=== PATIENT | male | born 1940 | race Asian ===

== ENCOUNTER 2021-09-25 14:47 | Inpatient (IN) | payer OTHER ==
[~2021-09-25] VITALS: Ht 157.5 cm; Wt 61.2 kg
[2021-09-25 14:50] VITALS: BP 98/43
--- NOTE | 2021-09-25 14:57 | NUR ---
PT W/C ASSISTED TO BED 3.
[2021-09-25] MEDS ORDERED: NACL 0.9% 1,000 ML IV SCH (15:00)
[2021-09-25] MEDS ORDERED: cefTRIAXone 1,000 MG in DEXT 5% MINI-BAG PLUS 50 ML IV ONE (15:00)
--- NOTE | 2021-09-25 15:10 | NUR ---
RADIOLOGY AT BEDSIDE
--- NOTE | 2021-09-25 15:11 | NUR ---
PAINT LABORATORY TECHNICIAN AT BEDSIDE.
[2021-09-25 15:34] LABS: BASOPHILS % (AUTO) 0.6 % (0.0-2.0); EOSINOPHILS # (AUTO) 0.3 K/uL (0-0.4); EOSINOPHILS % (AUTO) 5.8 % (0.0-4.0); HEMATOCRIT 26.9 % (36-52); LYMPHOCYTES # (AUTO) 1.1 K/uL (2.0-11.5); LYMPHOCYTES % (AUTO) 22.5 % (20.5-51.1); MEAN CORPUSCULAR HEMOGLOBIN 32 pg (27-31); MEAN CORPUSCULAR HGB CONC 33 g/dL (33-37); MONOCYTES # (AUTO) 0.4 K/uL (0.8-1.0); MONOCYTES % (AUTO) 9.2 % (1.7-9.3); NEUTROPHILS # (AUTO) 2.9 K/uL (1.8-7.7); NEUTROPHILS % (AUTO) 61.9 % (42.2-75.2); PLATELET COUNT (AUTO) 161 K/uL (140-450); RED BLOOD CELL COUNT(AUTO) 2.77 MIL/uL (4.20-6.10); RED CELL DISTRIBUTION WIDTH 12.8 % (11.6-13.7); WHITE BLOOD COUNT (AUTO) 4.7 K/uL (4.8-10.8)
[2021-09-25 15:50] LABS: ALBUMIN 2.8 g/dL (3.4-5.0); ANION GAP 14.5 (8-16); ASPARTATE AMINOTRANSFERASE 20 U/L (15-37); CARBON DIOXIDE 24.9 mmol/L (21-32); CHLORIDE 102 mmol/L (98-107); CREATININE 2.3 mg/dL (0.6-1.3); GLUCOSE 226 mg/dL (74-106); POTASSIUM 4.4 mmol/L (3.5-5.1); SODIUM SERUM 137 mmol/L (136-145); TOTAL BILIRUBIN 0.3 mg/dL (0.0-1.0); UREA NITROGEN, BLOOD 55 mg/dL (7-18)
[2021-09-25] MEDS ORDERED: NACL 0.9% 1,000 ML IV ONE ×2 (16:20→17:50)
--- NOTE | 2021-09-25 16:24 | NUR ---
WALKED URINE SPECIMEN TO LAB, HANDED TO CPT JONATHAN
[2021-09-25 16:37] LABS: APPEARANCE,URINE CLEAR (CLEAR); BILIRUBIN,URINE NEGATIVE (NEGATIVE); BLOOD, URINE NEGATIVE (NEGATIVE); COLOR,URINE YELLOW (YELLOW); LEUKOCYTE ESTERASE ,URINE NEGATIVE (NEGATIVE); NITRITE, URINE NEGATIVE (NEGATIVE); UGLUCOSE 3+ (NEGATIVE)
[2021-09-25] MEDS ORDERED: cefTRIAXone 1,000 MG VIAL ONE (16:52)
--- NOTE | 2021-09-25 17:54 | NUR ---
81 Y/O MALE BIB FAMILY C/O GENERALIZED WEAKNESS X 3 DAYS. PT BLOOD SUGAR 215 AT THIS TIME. DENIES FEVER/CHILLS. DENIES N/V/D. PMH: DM, HTN, PACE MAKER ELYSIA
--- NOTE | 2021-09-25 18:34 | NUR ---
Patient will be admitted to care of DR. WELDON. Admited to TELEMETRY. Will go to room 112A. Belongings list completed. Report to LIAT COSTELLO.
[2021-09-25 18:36] VITALS: BP 185/66
--- NOTE | 2021-09-25 18:36 | NUR ---
ADMITTED PT FROM ED VIA GURNEY, BEDSIDE REPORT GIVEN BY KEO GARCIA. PT IS ALERT, AWAKE ABLE TO MAKE NEEDS KNOWN, SPEAKS AND UNDERSTANDS EQUATORIAL GUINEAN BUT PRIMARILY SPEAKS CZECH. ABLE TO AMBULATE WITH STEADY GAIT, BREATHING SYMMETRICAL ON ROOM AIR. DENIES PAIN AT THIS TIME. WITH LAC 20G WITH NS AT 60CC/HR. MRSA SWAB DONE. [id number] PR60 RR17 TEMP97.0 O2 SAT ON ROOM AIR 98% AT BEDSIDE, AND PT STATED THAT HIS BP IS ALWAYS HIGH, AROUND THAT RANGE OR EVEN HIGHER. LEFT MESSAGE TO DR WELDON REGARDING ELEVATED BP, AWAITING RESPONSE. SERVED WITH DINNER AND ABLE TO FEED SELF. CALL LIGHT WITHIN REACH. BED ON LOW POSITION, BRAKES ON. ALL SAFETY MEASURES IN PLACE.
--- NOTE | 2021-09-25 18:53 | NUR ---
The patient's care was reviewed and supervised by Anamaria Acosta RN.
[2021-09-25] MEDS ORDERED: ONDANSETRON 4 MG/2 ML VIAL IM/IVP PRN (19:00)
[2021-09-25] MEDS ORDERED: POTASSIUM CHLORIDE 10 MEQ TABER PO PRN (19:00)
[2021-09-25] MEDS ORDERED: DOCUSATE SODIUM 100 MG GELCAP PO PRN (19:00)
[2021-09-25] MEDS ORDERED: ZOLPIDEM 5 MG TAB PO PRN (19:00)
[2021-09-25] MEDS ORDERED: HYDROcodone/APAP 7.5/325 MG 1 TAB PO PRN (19:00)
[2021-09-25] MEDS ORDERED: guaiFENesin DM 200/20 MG-10 ML 10 ML UDC PO PRN (19:00)
[2021-09-25] MEDS ORDERED: ACETAMINOPHEN 325 MG TAB PO PRN (19:00)
--- NOTE | 2021-09-25 19:05 | NUR ---
ENDORSED PT TO RAMP JOCKEY NURSE, ALSO MADE AWARE OF PT'S ELEVATED BP AND AWAITING RESPONSE FROM DR WELDON. PT IN STABLE CONDITION AT THIS TIME
--- NOTE | 2021-09-25 19:08 | NUR ---
RECEIVED REPORT FROM ASHLEY DOWLING RN FOR CONTINUITY OF CARE. PT IS AWAKE ON RM AIR WITH NO S/S OF DISTRESS AT THIS TIME. PT IS AMBULATORY. IV SITE LAC 20G. SKIN IS INTACT. PLAN OF CARE DISCUSSED. WILL CONTINUE TO MONITOR.
--- NOTE | 2021-09-25 19:15 | NUR ---
RECEIVED CRITICAL LAB VALUE: LACTIC ACID 3.4. TEXTED DR WELDON. RECEIVED ORDERS. INFORMED HIM ROCEPHIN 1GM ALREADY GIVEN IN ER @ 17:15. NEW ORDER FOR LOPRESSOR 25MG RECEIVED. FIRST DOSE GIVEN WITH HS MEDS FOR HIGH SYSTOLIC BP 180'S. WILL CONTINUE TO OBSERVE.
[2021-09-25 19:45] LABS: PROTHROMBIN TIME 10.1 secs (10.8-13.4)
[2021-09-25 19:48] LABS: CHOL/HDL RATIO 3.3 (1-4.5); FREE T4 (FREE THYROXINE) 1.02 ng/dL (0.76-1.46); MAGNESIUM 1.9 mg/dL (1.8-2.4); PHOSPHORUS 4.4 mg/dL (2.5-4.9); THYROID STIMULATING HORMONE 2.06 uIU/mL (0.34-3.74)
[2021-09-25] MEDS: NACL 0.9% 1,000 ML IV SCH (20:35)
[2021-09-25] MEDS: METOPROLOL 25 MG TAB PO SCH (20:49)
--- NOTE | 2021-09-25 23:30 | NUR ---
RESTING COMFORTABLY. VSS: BP-136/70, P-60, RR-18, T-98.2, O2SAT 97% ON ROOM AIR. LOPRESSOR EFFECTIVE. NAD. WILL CONTINUE TO MONITOR.
--- NOTE | 2021-09-26 02:00 | NUR ---
FREQ ROUNDS. PT SLEEPING RR EVEN AND UNLABORED WITH EQUAL CHEST RISE. NAD. WILL CONTINUE TO OBSERVE.
[2021-09-26] MEDS: hydrALAZINE 20 MG/ML VIAL IVP PRN ×3 (04:26→22:12)
--- NOTE | 2021-09-26 04:30 | NUR ---
VS: BP-197/69. RECEIVED APRESOLINE 10MG IVP/0.5ML IVP. WILL REASSESS AT 0530.
--- NOTE | 2021-09-26 05:30 | NUR ---
BP-NOW 159/64 HR-60. APRESOLINE EFFECTIVE. RESTING/DOZING RR EVEN AND UNLABORED WITH EQUAL CHEST RISE. DENIES PAIN. WILL CONTINUE TO MONITOR.
[2021-09-26 07:13] LABS: BASOPHILS % (AUTO) 0.8 % (0.0-2.0); EOSINOPHILS # (AUTO) 0.4 K/uL (0-0.4); EOSINOPHILS % (AUTO) 8.3 % (0.0-4.0); HEMATOCRIT 29.4 % (36-52); HEMOGLOBIN 9.9 g/dL (12.0-18.0); LYMPHOCYTES % (AUTO) 23.1 % (20.5-51.1); MEAN CORPUSCULAR HEMOGLOBIN 32 pg (27-31); MEAN CORPUSCULAR HGB CONC 34 g/dL (33-37); MEAN CORPUSCULAR VOLUME 95.9 fL (80-94); MONOCYTES # (AUTO) 0.4 K/uL (0.8-1.0); MONOCYTES % (AUTO) 8.2 % (1.7-9.3); NEUTROPHILS # (AUTO) 2.7 K/uL (1.8-7.7); NEUTROPHILS % (AUTO) 59.6 % (42.2-75.2); PLATELET COUNT (AUTO) 186 K/uL (140-450); RED BLOOD CELL COUNT(AUTO) 3.06 MIL/uL (4.20-6.10); RED CELL DISTRIBUTION WIDTH 12.7 % (11.6-13.7); WHITE BLOOD COUNT (AUTO) 4.5 K/uL (4.8-10.8)
--- NOTE | 2021-09-26 07:20 | NUR ---
ENDORSED REPORT TO AM LIAT RIVERS FOR CONTINUITY OF CARE. PT IS STABLE.
[2021-09-26 07:22] LABS: ANION GAP 12.3 (8-16); CARBON DIOXIDE 25.7 mmol/L (21-32); CHLORIDE 106 mmol/L (98-107); CREATININE 1.8 mg/dL (0.6-1.3); GLUCOSE 188 mg/dL (74-106); SODIUM SERUM 140 mmol/L (136-145); UREA NITROGEN, BLOOD 42 mg/dL (7-18)
--- NOTE | 2021-09-26 07:28 | NUR ---
RECEIVED PT FROM NIGHT RN, PT IS AMBULATING FROM THE BATHROOM, STEADY GAIT, AOX4, ON RA, IV LINE NOTED ON THE LAC G. 20 WITH IVF NS INFUSING AT 60ML/HR, INTACT, NO SIGN OF DISTRESS NOTED AND WILL CONTINUE TO MONITOR PT.
[2021-09-26 08:00] VITALS: BP 170/64
[2021-09-26] MEDS: PANTOPRAZOLE 40 MG TABEC PO SCH (09:27)
[2021-09-26] MEDS: METOPROLOL 25 MG TAB PO SCH ×2 (09:27→20:13)
--- NOTE | 2021-09-26 10:15 | NUR ---
PT REFUSED TO EAT BREAKFAST AND VERBALIZED THAT HE WILL WAIT FOR HIS TO BRING HIM FOOD.
[2021-09-26 10:52] LABS: APPEARANCE,URINE CLEAR (CLEAR); BILIRUBIN,URINE NEGATIVE (NEGATIVE); BLOOD, URINE NEGATIVE (NEGATIVE); COLOR,URINE YELLOW (YELLOW); LEUKOCYTE ESTERASE ,URINE NEGATIVE (NEGATIVE); NITRITE, URINE NEGATIVE (NEGATIVE); PH,URINE 6.5 (5.0-9.0); UGLUCOSE 3+ (NEGATIVE)
[2021-09-26 11:35] LABS: CALCIUM OXALATE CRYSTALS,UR None Seen /HPF (None Seen); COARSE GRANULAR CASTS,URINE None Seen /LPF (None Seen); FINE GRANULAR CASTS,URINE None Seen /LPF (None Seen); HYALINE CASTS, URINE None Seen /LPF (None Seen); OTHER CASTS, URINE None Seen /LPF (None Seen); OTHER CRYSTALS,URINE None Seen /HPF (None Seen); RBC,URINE NONE SEEN /HPF (0-5); RED BLOOD CELL CASTS,URINE None Seen /LPF (None Seen); TRICHOMONAS,URINE None Seen /HPF (None Seen); TRIPLE PHOSPHATE CRYSTAL,UR None Seen /HPF (None Seen); URIC ACID CRYSTALS,URINE None Seen /HPF (None Seen); URINE AMORPHOUS URATE None Seen /HPF (None Seen); WAXY CASTS,URINE None Seen /LPF (None Seen); YEAST,URINE None Seen /HPF (None Seen)
[2021-09-26 11:37] LABS: WBC,URINE 0-5 /HPF (0-5)
[2021-09-26 12:00] VITALS: BP 181/55
[2021-09-26] MEDS: NACL 0.9% 1,000 ML IV SCH (13:41)
--- NOTE | 2021-09-26 13:50 | NUR ---
pt was given bp medication via iv push now, on the bedside.
--- NOTE | 2021-09-26 14:54 | NUR ---
DR. WELDON GAVE A TELEPHONE ORDER TO GIVEN PT HYDRALAZINE PO 10MG TABLET TID AND GIVE ONE DOSE NOW, PT'S BP IS STILL HIGH AFTER THE HYDRALAZINE 10MG IVP ONE HOUR AFTER THAT WAS GIVEN
[2021-09-26] MEDS ORDERED: hydrALAZINE 10 MG TAB PO SCH ×2 (14:57→17:00)
[2021-09-26 16:00] VITALS: BP 166/56
[2021-09-26 18:44] VITALS: BP 159/78
--- NOTE | 2021-09-26 19:15 | NUR ---
ENDORSED PT TO NIGHT RN FOR CONTINUITY OF CARE.
--- NOTE | 2021-09-26 19:16 | NUR ---
RECEIVED REPORT FROM AM NURSE FOR CONTINUITY OF CARE. PT IS RESTING. RR EVEN AND UNLABORED ON ROOM AIR. NO S/S OF DISTRESS. SKIN IS INTACT. PLAN OF CARE DISCUSSED. WILL CONTINUE TO MONITOR.
[2021-09-26 20:00] VITALS: BP 214/62
[2021-09-26] MEDS ORDERED: NIFEdipine 30 MG TABER PO SCH (20:00)
[2021-09-26] MEDS: hydrALAZINE 25 MG TAB PO SCH (20:12)
--- NOTE | 2021-09-26 20:30 | NUR ---
VS:BP-214/62,P-60 PACED RHYTHM, RR-18, T-98.3 ORAL, O2 SAT=94%. RECEIVED SCHEDULED BP MEDS. PT IS ASYMPTOMATIC. WILL CONTINUE TO MONITOR PT IS AMBULATORY AND INDEPENDENT. VOIDS PER URINAL.
--- NOTE | 2021-09-26 22:00 | NUR ---
REASSESSED BLOOD PRESSURE. MEDS HAD SLIGHT EFFECT BP IS NOW 202/63, P-60,RR-18,T-98.4, O2SAT= 98%. PT REMAINS ASYMPTOMATIC. AWAKE ,ALERTDENIES CHEST PAIN. WILL CONTINUE WITH FREQ ROUNDS.
--- NOTE | 2021-09-26 22:12 | NUR ---
PT RECEIVED APRESOLINE 1MG/0.5ML IVP PRN SBP>160. REASSESSED PT'S BLOOD PRESSURE AT 2300. ONLY SLIGHT EFFECT BP NOW 198/60. PT SLEEPING RR EVEN AND UNLABORED. NO C/O PAIN OR DISTRESS. WILL CONTINUE WITH FREQ ROUNDS.
[2021-09-26 22:27] LABS: TOTAL PROTEIN URINE 214.5 MG/DL
[2021-09-27] VITALS: BP 198/60
--- NOTE | 2021-09-27 02:30 | NUR ---
FREQ ROUNDS.CHECKED PT IS STABLE AND ASLEEP IN BED. RR EVEN AND UNLABORED WITH EQUAL CHEST RISE. ALL SAFETY MEASURES IN PLACE. CALL LIGHT WITHIN REACH. WILL CONTINUE TO MONITOR.
[2021-09-27 04:00] VITALS: BP 185/62
--- NOTE | 2021-09-27 04:30 | NUR ---
BZ=385/62 PT ASYMPTOMATIC. TOO EARLY FOR PRN APRESOLINE. VOIDING PER URINAL. PT AMBULATES. NAD ALL SAFETY MEASURES IN PLACE. CALL LIGHT WITHIN REACH. CONTINUE TO MONITOR.
[2021-09-27] MEDS: NACL 0.9% 1,000 ML IV SCH (05:55)
[2021-09-27 06:29] LABS: BASOPHILS % (AUTO) 0.9 % (0.0-2.0); EOSINOPHILS # (AUTO) 0.3 K/uL (0-0.4); EOSINOPHILS % (AUTO) 5.3 % (0.0-4.0); HEMOGLOBIN 10.9 g/dL (12.0-18.0); LYMPHOCYTES # (AUTO) 1.1 K/uL (2.0-11.5); LYMPHOCYTES % (AUTO) 22.9 % (20.5-51.1); MEAN CORPUSCULAR HEMOGLOBIN 32 pg (27-31); MEAN CORPUSCULAR HGB CONC 33 g/dL (33-37); MEAN CORPUSCULAR VOLUME 96.1 fL (80-94); MONOCYTES # (AUTO) 0.4 K/uL (0.8-1.0); MONOCYTES % (AUTO) 9.5 % (1.7-9.3); NEUTROPHILS # (AUTO) 2.9 K/uL (1.8-7.7); NEUTROPHILS % (AUTO) 61.4 % (42.2-75.2); PLATELET COUNT (AUTO) 207 K/uL (140-450); RED BLOOD CELL COUNT(AUTO) 3.43 MIL/uL (4.20-6.10); RED CELL DISTRIBUTION WIDTH 12.7 % (11.6-13.7); WHITE BLOOD COUNT (AUTO) 4.7 K/uL (4.8-10.8)
[2021-09-27 06:47] LABS: ANION GAP 14.2 (8-16); CARBON DIOXIDE 23.7 mmol/L (21-32); CHLORIDE 106 mmol/L (98-107); CREATININE 1.8 mg/dL (0.6-1.3); GLUCOSE 271 mg/dL (74-106); POTASSIUM 3.9 mmol/L (3.5-5.1); SODIUM SERUM 140 mmol/L (136-145); UREA NITROGEN, BLOOD 32 mg/dL (7-18)
--- NOTE | 2021-09-27 07:32 | NUR ---
ENDORSED REPORT TO DAY SHIFT RN DIONNA FOR CONTINUITY OF CARE. PT IS STABLE.
[2021-09-27 08:00] VITALS: BP 198/68
[2021-09-27 08:08] LABS: T4 (THYROXINE) 7.5 ug/dL (4.5-12.0)
--- NOTE | 2021-09-27 09:05 | NUR ---
PATIENT HAS BEEN SCREENED AND CATEGORIZED MODERATE NUTRITION RISK. PATIENT WILL BE SEEN WITHIN 3-5 DAYS OF ADMISSION. /10/[address]
[2021-09-27] MEDS: hydrALAZINE 25 MG TAB PO SCH ×3 (09:11→16:30)
[2021-09-27] MEDS: PANTOPRAZOLE 40 MG TABEC PO SCH (09:12)
[2021-09-27] MEDS: METOPROLOL 25 MG TAB PO SCH ×2 (09:12→21:39)
[2021-09-27 09:30] VITALS: BP 168/64
[2021-09-27] MEDS ORDERED: CLOPIDOGREL 75 MG TAB PO SCH (10:30)
[2021-09-27] MEDS ORDERED: ASPIRIN 81 MG TAB.CHEW PO SCH (10:30)
--- NOTE | 2021-09-27 11:31 | NUR ---
patient up and about and denies pain.2d echo done.
[2021-09-27] MEDS: ATORVASTATIN 20 MG TAB PO SCH (12:02)
--- NOTE | 2021-09-27 13:58 | NUR ---
DC PLANNING: THE PATIENT PRESENTED TO THE ED WITH C/O GENERALIZED WEAKNESS X 3 DAYS. H/O DM, HTN AND PACEMAKER. CXR SHOWS CARDIOMEGALY AND PULMONARY VASCULAR CONGESTION, BUN 55, CR 2.3, PATIENT WITHOUT H/O OF CKD. BNP 730, UA-. PATIENT GIVEN 2 L NS AND ROCEPHIN IV IN ED AND ADMITTED FOR W/U. ORDERS FOR CONSULTS WITH NEUROLOGY, CARDIOLOGY AND NEPHROLOGY. CM SPOKE WITH THE PATIENTS SON ABHIJIT BY PHONE AND CONFIRMED THE PATIENTS ADDRESS AND PHONE NUMBER. CONFIRMED HIS PCP AND THAT PATIENT SEES HIM REGULARLY. THE PATIENT RENÉ WITH HIS SPOUSE AND SON IN A SINGLE STORY HOUSE AND IS INDEPENDENT IN ALL ACTIVITIES. HAS DME OF CANE, WC, FWW AND GLUCOMETER AND TAKES PO'S FOR HIS DM. HE HAS BEEN USING A CANE THIS LAST WEEK WHEN AMBULATING BECAUSE OF HIS C/O WEAKNESS BUT IS USUALLY ABLE TO AMBULATE INDEPENDENTLY INSIDE THE HOUSE. HE HAS NO HAD HOME HEALTH BEFORE OR BEEN IN A SNF. THE PATIENT AND SPOUSE ARE MOVING TO [place] THIS WEEKEND, ADDRESS [id number] [place], [phone]. HE DOES NOT THINK THE PHONE NUMBERS WILL CHANGE AND IS ASKING FOR HOME HEALTH F/U WHEN PATIENTS DC'S. CM EXPLAINED THAT [place] MIGHT BE OUT OF THE PATIENTS INSURANCE COVERAGE AREA BUT CM WILL F/U. FAMILY IS ABLE TO PROVIDE TRANSPORT HOME WHEN PATIENT DC'S, CM WILL FOLLOW. Addendum: 09/27/21 at 1405 by Kelly Marie CM Amended: Links added. Addendum: 09/29/21 at 0854 by Kelly Marie CM DC PLANNING: CM SPOKE WITH THE PATIENT AND HIS DAUGHTER AT BEDSIDE, ENDORSED THAT PATIENT WILL POTENTIALLY DC TODAY. THE IMPORTANT MESSAGE FROM MEDICARE WAS PRESENTED TO THE PATIENT WHO SIGNED IT, COPY GIVEN TO HIM. LAUREN WILL FOLLOW
[2021-09-27 16:00] VITALS: BP_SYST 180; BP_SYST 181; BP_SYST 184; BP_DIAS 50; BP_DIAS 56; BP_DIAS 59
[2021-09-27] MEDS: ISOSORBIDE MONONITRATE 30 MG TABER PO SCH ×2 (16:29→21:37)
[2021-09-27 20:00] VITALS: BP 196/59
[2021-09-27] MEDS: NIFEdipine 90 MG TABER PO SCH (20:32)
[2021-09-27] MEDS: lisinopriL 10 MG TAB PO SCH (21:40)
[2021-09-28] VITALS: BP 145/48
[2021-09-28 04:00] VITALS: BP 145/48
[2021-09-28 06:44] LABS: ANION GAP 14.9 (8-16); CARBON DIOXIDE 21.9 mmol/L (21-32); CHLORIDE 104 mmol/L (98-107); CREATININE 1.9 mg/dL (0.6-1.3); POTASSIUM 3.8 mmol/L (3.5-5.1); SODIUM SERUM 137 mmol/L (136-145); UREA NITROGEN, BLOOD 29 mg/dL (7-18)
[2021-09-28 06:48] LABS: GLUCOSE 441 mg/dL (74-106)
[2021-09-28 06:53] LABS: EOSINOPHILS # (AUTO) 0.3 K/uL (0-0.4); EOSINOPHILS % (AUTO) 5.4 % (0.0-4.0); HEMATOCRIT 30.7 % (36-52); HEMOGLOBIN 10.4 g/dL (12.0-18.0); LYMPHOCYTES % (AUTO) 20.1 % (20.5-51.1); MEAN CORPUSCULAR HEMOGLOBIN 32 pg (27-31); MEAN CORPUSCULAR HGB CONC 34 g/dL (33-37); MEAN CORPUSCULAR VOLUME 95.3 fL (80-94); MONOCYTES # (AUTO) 0.5 K/uL (0.8-1.0); MONOCYTES % (AUTO) 11.1 % (1.7-9.3); NEUTROPHILS % (AUTO) 62.4 % (42.2-75.2); PLATELET COUNT (AUTO) 209 K/uL (140-450); RED BLOOD CELL COUNT(AUTO) 3.22 MIL/uL (4.20-6.10); RED CELL DISTRIBUTION WIDTH 12.8 % (11.6-13.7); WHITE BLOOD COUNT (AUTO) 4.9 K/uL (4.8-10.8)
--- NOTE | 2021-09-28 07:00 | NUR ---
GLUCOSE - 441 - INFORMED CLAU RN , CLAU RN RELAYED THE GLUCOSE [address] WELDON - NO RESPONSE YET . I TOLD TO CLAU RN SHE HAVE TO ENDORSE AM NURSE TO FF UP IF DR Cl WELDON HAVE FURTHER ORDERS ABOUT IT - LIAT OLGUIN VERBALIZES UNDERSTANDING
[2021-09-28 08:00] VITALS: BP 193/69
[2021-09-28] MEDS: ATORVASTATIN 20 MG TAB PO SCH (08:15)
[2021-09-28] MEDS: ISOSORBIDE MONONITRATE 30 MG TABER PO SCH ×2 (08:16→21:11)
[2021-09-28] MEDS: CLOPIDOGREL 75 MG TAB PO SCH (08:17)
[2021-09-28] MEDS: PANTOPRAZOLE 40 MG TABEC PO SCH (08:18)
[2021-09-28] MEDS: METOPROLOL 25 MG TAB PO SCH (08:18)
[2021-09-28] MEDS: hydrALAZINE 25 MG TAB PO SCH ×3 (08:20→17:11)
[2021-09-28] MEDS: ECOTRIN 81 MG TABEC PO SCH (08:20)
[2021-09-28] MEDS: lisinopriL 10 MG TAB PO SCH ×2 (08:21→21:11)
[2021-09-28] MEDS ORDERED: LABETALOL 100 MG/20 ML VIAL IV PRN (08:45)
[2021-09-28] MEDS ORDERED: ISOSORBIDE MONONITRATE 30 MG TABER PO SCH (09:00)
[2021-09-28] MEDS ORDERED: hydrALAZINE 25 MG TAB PO SCH (09:00)
[2021-09-28] MEDS ORDERED: DEXTROSE 50% 50 ML SYR IVP PRN (09:25)
[2021-09-28] MEDS ORDERED: CLINICAL MONITORING MC PRN (09:50)
--- NOTE | 2021-09-28 10:09 | NUR ---
AROUND 0800, PATIENT' BP WA 193/69, NURSE GAVE PATIENT'S ROUTINE MORNING BP MEDS AND DR. GOMES VISITED PATIENT AND PRESCRIBED COUPLE MORE BP MEDS. AROUND PCP ALSO PRESCRIBED A MEDICATION TO MODULATE BLOOD SUGAR A,D MONITOR BLOOD SUGAR THROUGH ACCUCHECK. AT 1015, PATIENT'S OE=233/64, PULSE=60. WILL CONTINUE TO MONITOR. Addendum: 09/28/21 at 1535 by Renita Vitale RN AT 1130 PATIENT'S ACCUCHECK READ 465; DR. WILLS INFORMED AND RECEIVE ORDER TO HAVE LANTUS/GLARGINE 10 UNITS DAILY AND LANTUS 10 UNITS STAT. AT 1200 PATIENT'S BP READ 193/70, PCP AWARE AND MARINO PRESCRIBED
[2021-09-28] MEDS: BLOOD GLUCOSE MONITORING 1 DEV DEV FS SCH ×3 (11:24→21:12)
[2021-09-28 12:00] VITALS: BP 193/70
[2021-09-28] MEDS: INSULIN LANTUS 100 UNITS/ML 10 ML VIAL SUBQ SCH (13:51)
--- NOTE | 2021-09-28 14:54 | NUR ---
SW ATTEMPTED TO REACH SONABHIJIT BY PHONE FOR THE PURPOSE OF GATHERING COLLATERAL INFORMATION TO NO AVAIL. SW WILL FOLLOW UP.
[2021-09-28 16:00] VITALS: BP 198/63
[2021-09-28] MEDS: INSULIN LISPRO SLIDING SCALE 100 UNITS/ML VIAL SUBQ PRN (17:11)
--- NOTE | 2021-09-28 19:33 | NUR ---
ENDORSE PT TO PM SHIFT NURSE W/ STABLE CONDITION, PIV R. FOREARM 22G PATENT W/ NS @60ML/HR INFUSING.
[2021-09-28 20:00] VITALS: BP 194/106
[2021-09-28] MEDS: NIFEdipine 90 MG TABER PO SCH (21:11)
[2021-09-28] MEDS: carvediloL 12.5 MG TAB PO SCH (21:12)
--- NOTE | 2021-09-28 21:12 | NUR ---
SCHEDULED MEDICATIONS FOR THE NIGHT ADMINISTERED. TOLERATED WELL.
--- NOTE | 2021-09-28 22:20 | NUR ---
DR. MANOLO IBANEZ CALLED, INQUIRED ABOUT PATIENT B/P. INFORMED LEFT ARM - 194/106, RIGHT ARM 163/46. ORDERED ANKLE BRACHIAL INDEX, BILATERAL AND CLONIDINE PATCH 0.1 MG. X1 AL WEEK.
[2021-09-29] VITALS: BP 152/50
--- NOTE | 2021-09-29 00:30 | NUR ---
SLEEPING COMFORTABLY IN BED, RESPIRATION EVEN AND UNLABORED.
--- NOTE | 2021-09-29 02:00 | NUR ---
RESTING IN BED, STILL SLEEPING COMFORTABLY.
[2021-09-29 04:00] VITALS: BP_SYST 101; BP_SYST 121; BP_SYST 135; BP_DIAS 44; BP_DIAS 48; BP_DIAS 56
--- NOTE | 2021-09-29 04:00 | NUR ---
AMBULATED TO BR TO VOID, GAIT STEADY. BACK TO BED AFTER VOIDING. ORTHOSTATIC BP TAKEN.
[2021-09-29] MEDS: INSULIN LISPRO SLIDING SCALE 100 UNITS/ML VIAL SUBQ PRN ×2 (06:19→12:57)
[2021-09-29] MEDS: BLOOD GLUCOSE MONITORING 1 DEV DEV FS SCH ×2 (06:19→12:12)
--- NOTE | 2021-09-29 06:45 | NUR ---
CONDITION REMAIN STABLE. WILL ENDORSE TO AM SHIFT NURSE FOR CONTINUITY OF CARE.
[2021-09-29 07:03] LABS: ANION GAP 12.7 (8-16); CHLORIDE 108 mmol/L (98-107); GLUCOSE 205 mg/dL (74-106); POTASSIUM 3.7 mmol/L (3.5-5.1); SODIUM SERUM 140 mmol/L (136-145); UREA NITROGEN, BLOOD 30 mg/dL (7-18)
[2021-09-29 07:13] LABS: BASOPHILS % (AUTO) 0.7 % (0.0-2.0); EOSINOPHILS # (AUTO) 0.5 K/uL (0-0.4); EOSINOPHILS % (AUTO) 8.5 % (0.0-4.0); HEMATOCRIT 30.4 % (36-52); HEMOGLOBIN 10.3 g/dL (12.0-18.0); LYMPHOCYTES # (AUTO) 1.6 K/uL (2.0-11.5); LYMPHOCYTES % (AUTO) 28.1 % (20.5-51.1); MEAN CORPUSCULAR HEMOGLOBIN 32 pg (27-31); MEAN CORPUSCULAR HGB CONC 34 g/dL (33-37); MEAN CORPUSCULAR VOLUME 95.6 fL (80-94); MONOCYTES # (AUTO) 0.5 K/uL (0.8-1.0); MONOCYTES % (AUTO) 9.6 % (1.7-9.3); NEUTROPHILS % (AUTO) 53.1 % (42.2-75.2); PLATELET COUNT (AUTO) 225 K/uL (140-450); RED BLOOD CELL COUNT(AUTO) 3.18 MIL/uL (4.20-6.10); RED CELL DISTRIBUTION WIDTH 12.6 % (11.6-13.7); WHITE BLOOD COUNT (AUTO) 5.6 K/uL (4.8-10.8)
[2021-09-29 08:00] VITALS: BP 166/56
--- NOTE | 2021-09-29 08:09 | NUR ---
SPOKE TO DR IBANEZ ON THE PHONE REGARDING ORDER FOR ANKLE BRACHIAL INDEX TEST, PER RADIOLOGY WE DON'T HAVE THE SPECIFIC TEST. DR IBANEZ STATED UNDERSTANDING STATED TO FORWARD HIM PRIMARY PHYSICIAN PHONE NUMBER (DR WILLS) AND TO HOLD LISINOPRIL. WILL CONTINUE WITH ORDERS.
[2021-09-29] MEDS: hydrALAZINE 25 MG TAB PO SCH (08:39)
[2021-09-29] MEDS: ATORVASTATIN 20 MG TAB PO SCH (08:40)
[2021-09-29] MEDS: ECOTRIN 81 MG TABEC PO SCH (08:41)
[2021-09-29] MEDS: PANTOPRAZOLE 40 MG TABEC PO SCH (08:41)
[2021-09-29] MEDS: CLOPIDOGREL 75 MG TAB PO SCH (08:47)
[2021-09-29] MEDS: ISOSORBIDE MONONITRATE 30 MG TABER PO SCH (08:47)
[2021-09-29] MEDS: carvediloL 12.5 MG TAB PO SCH (08:49)
[2021-09-29] MEDS ORDERED: cloNIDine-TTS1 0.1 MG/24 HR 1 EA PATCH TD SCH ×2 (09:00)
[2021-09-29] MEDS: INSULIN LANTUS 100 UNITS/ML 10 ML VIAL SUBQ SCH (09:00)
[2021-09-29] MEDS ORDERED: PANT40EC56 PO (09:08)
[2021-09-29] MEDS ORDERED: ASPI-1856 PO (09:08)
[2021-09-29] MEDS ORDERED: DOCU-299 PO (09:08)
[2021-09-29] MEDS ORDERED: ISOS30TE68 PO (09:08)
[2021-09-29] MEDS ORDERED: CLOP75TA55 PO (09:08)
[2021-09-29] MEDS ORDERED: CLON0.1T46 TD (09:08)
[2021-09-29] MEDS ORDERED: HYDR-4420 PO (09:08)
[2021-09-29] MEDS ORDERED: SITA50TA3 PO (09:08)
[2021-09-29] MEDS ORDERED: CARV12.52 PO (09:08)
[2021-09-29] MEDS ORDERED: LANTUS SUBQ (09:08)
[2021-09-29] MEDS ORDERED: ATOR20TA40 PO (09:08)
[2021-09-29] MEDS ORDERED: NIFE90TE63 PO (09:08)
[2021-09-29 10:00] VITALS: BP_SYST 181; BP_SYST 187; BP_DIAS 54; BP_DIAS 58
--- NOTE | 2021-09-29 11:15 | NUR ---
FNS CONSULT HAS BEEN RECEIVED FOR DIET EDUCATION. PATIENT HAS BEEN RE-SCREENED HIGH RISK AND WILL BE SEEN TODAY. B[address]IE [address]
[2021-09-29] MEDS ORDERED: SITA25TA3 PO (13:07)
[2021-09-29] MEDS ORDERED: CLONIDINE HYDROCHLORIDE 0.1 MG TAB PO SCH (13:25)
--- NOTE | 2021-09-29 13:36 | NUR ---
09/29/21 RD INITIAL ASSESSMENT COMPLETED PLEASE REFER TO NUTRITION ASSESSMENT UNDER CARE ACTIVITY FOR ESTIMATED NUTRITIONAL NEEDS. 1. CONTINUE CCHO 60GM MECHANICAL SOFT DIET TOLERATED 2. RECOMMEND GLUCERNA BID PER RD PROTOCOL 3. PROVIDED NUTRITION EDUCATION FOR DIABETES 4. RD TO FOLLOW-UP 3-5 DAYS, MODERATE RISK BERNIE LI RD
--- NOTE | 2021-09-29 13:56 | NUR ---
patient home AMA DESPITE HEALTH INSTRUCTIONS BY DR IBANEZ , DR WILLS, DR FITZGERALD WITH [facility] RADIO COMMUNICATION COORDINATOR. SIGNED AMA PAPERS AND PATIENT SON NOTIFIED OF AMA STATUS OF FATHER . PATIENT HOME AMA BY HIS NIECE ACCOMPANIED BY FNPS PER WHEELCHAIR.IV DCD INTACT AND TOP DRESSING APPLIED.
== END 2021-09-29 14:00 | disposition left against medical advice (07) | DRG 291 ==
LOC: MED 14:47 → MTU 17:55
PROVIDERS: ADMIT Family Medicine; ATTEND Family Medicine
DX: I13.0 Hypertensive heart and chronic kidney disease with heart failure and stage 1 through stage 4 chronic kidney disease, or unspecified chronic kidney disease (principal); I50.43 Acute on chronic combined systolic (congestive) and diastolic (congestive) heart failure; N17.0 Acute kidney failure with tubular necrosis; G93.41 Metabolic encephalopathy; E43 Unspecified severe protein-calorie malnutrition; G45.9 Transient cerebral ischemic attack, unspecified; R65.10 Systemic inflammatory response syndrome (SIRS) of non-infectious origin without acute organ dysfunction; I16.1 Hypertensive emergency; E78.5 Hyperlipidemia, unspecified; Z20.822 Contact with and (suspected) exposure to COVID-19; E86.0 Dehydration; E11.9 Type 2 diabetes mellitus without complications; D63.8 Anemia in other chronic diseases classified elsewhere; I35.1 Nonrheumatic aortic (valve) insufficiency; N18.30 Chronic kidney disease, stage 3 unspecified; E11.22 Type 2 diabetes mellitus with diabetic chronic kidney disease; Z95.0 Presence of cardiac pacemaker
CPT/HCPCS: 36415; 70450; 71045; 76770; 80048; 80053; 81001; 81003; 82150; 82570; 82948; 83036; 83605; 83690; 83735; 83880; 84100; 84156; 84300; 84436; 84439; 84443; 84479; 84484; 85025; 85610; 85730; 87040; 87081; 87086; 92610; 93005; 93880; 93976; 96361; 96365; 97530; 99285; J0360; J0696; J1815; J7030; Q0092